=== PATIENT | female | born 1965 | race Caucasian/White ===

== ENCOUNTER 2020-03-24 19:20 | Emergency (ER) | payer MEDICARE, OTHER ==
[2020-03-24] MEDS ORDERED: PERCOCET 5/325 T1 EA PO (20:24)
== END 2020-03-24 21:00 | disposition home or self-care (01) ==
LOC: ER1 19:20
DX: S52.571A Other intraarticular fracture of lower end of right radius, initial encounter for closed fracture (principal); M25.511 Pain in right shoulder; I10 Essential (primary) hypertension; E11.9 Type 2 diabetes mellitus without complications; E78.5 Hyperlipidemia, unspecified; F17.210 Nicotine dependence, cigarettes, uncomplicated; Z79.84 Long term (current) use of oral hypoglycemic drugs; Z88.1 Allergy status to other antibiotic agents; W10.9XXA Fall (on) (from) unspecified stairs and steps, initial encounter
CPT/HCPCS: 29125; 73060; 73090; 73130; 99283